=== PATIENT | male | born 1965 | race African-American/Black ===

== ENCOUNTER 2016-07-26 22:18 | Emergency (ER) | payer BC ==
[2016-07-26] MEDS ORDERED: Sodium Chloride 0.9% 1,000 ML IV ONE (22:34)
--- NOTE | 2016-07-26 22:37 | EDM.PDOC ---
ED HPI GENERAL MEDICAL PROBLEM - General Chief Complaint: General Stated Complaint: FLU Time Seen by Provider: 07/26/16 22:33 - History of Present Illness INITIAL COMMENTS - FREE TEXT/NARRATIVE: HISTORY AND PHYSICAL: History of present illness: Patient 50-year-old black male who presents with a chief complaint of tactile fever x2 days he's had exposure to another ill coworker is in no vomiting no no diarrhea he states he has had a mild cough no shortness of breath no abdominal pain Review of systems: As per history of present illness and below otherwise all systems reviewed and negative. Past medical history: As per history of present illness and as reviewed below otherwise noncontributory. Surgical history: As per history of present illness and as reviewed below otherwise noncontributory. Social history: No reported history of drug or alcohol abuse. Family history: As per history of present illness and as reviewed below otherwise noncontributory. Physical exam: HEENT: Atraumatic, normocephalic, pupils reactive, negative for conjunctival pallor or scleral icterus, mucous membranes moist, throat clear, neck supple, nontender, trachea midline. Lungs: Clear to auscultation, breath sounds equal bilaterally, chest nontender. Heart: S1S2, regular, negative for clicks, rubs, or JVD. Abdomen: Soft, nondistended, nontender. Negative for masses or hepatosplenomegaly. Negative for costovertebral tenderness. Pelvis: Stable nontender. Genitourinary: Deferred. Rectal: Deferred. Extremities: Atraumatic, negative for cords or calf pain. Neurovascular unremarkable. Neuro: Awake, alert, oriented. Cranial nerves II through XII unremarkable. Cerebellum unremarkable. Motor and sensory unremarkable throughout. Exam nonfocal. Diagnostics: CBC CMP influenza screen chest x-ray Therapeutics: Normal saline 1 L bolus Impression: #1 history of tactile fever #2 medical screening exam #3 probable viral syndrome Definitive disposition and diagnosis as appropriate pending reevaluation and review of above. no pain Pain Score (Numeric/FACES): 0 - Related Data Allergies Allergy/AdvReac Type Severity Reaction Status Date / Time No Known Allergies Allergy Verified 07/26/16 22:23 Home Meds: Home Meds Finasteride [Proscar] 5 mg PO DAILY 07/26/16 [History] ED ROS GENERAL - Review of Systems Review Of Systems: ROS reveals no pertinent complaints other than HPI. ED EXAM, GENERAL - Physical Exam Exam: See Below (See dictation) Course - Vital Signs Last Recorded V/S: Last Vital Signs Temp 36.8 C 07/26/16 22:24 Pulse 72 07/26/16 22:24 Resp 16 07/26/16 22:24 BP 122/74 07/26/16 22:24 Pulse Ox 99 07/26/16 22:24 - Orders/Labs/Meds Orders: Active Orders 24 hr Category Date Time Status Chest 2V [CR] Stat Exams 07/26/16 22:34 Ordered CBC WITH AUTO DIFF [HEME] Stat Lab 07/26/16 22:34 Ordered COMPREHENSIVE METABOLIC PN,CMP [CHEM] Stat Lab 07/26/16 22:34 Ordered INFLUENZA A+B AG SCREEN [RM] Stat Lab 07/26/16 22:34 Uncollected Sodium Chloride 0.9% [Normal Saline] 1,000 ml Med 07/26/16 22:34 Ordered IV STAT Departure - Departure Time of Disposition: 22:36 Disposition: Home, Self-Care 01 Condition: good Clinical Impression: Viral syndrome Forms: ED Department Discharge Additional Instructions: The following information is given to patients seen in the emergency department who are being discharged to home. This information is to outline your options for follow-up care. We provide all patients seen in our emergency department with a follow-up referral. The need for follow-up, as well as the timing and circumstances, are variable depending upon the specifics of your emergency department visit. If you don't have a primary care physician on staff, we will provide you with a referral. We always advise you to contact your personal physician following an emergency department visit to inform them of the circumstance of the visit and for follow-up with them and/or the need for any referrals to a consulting specialist. The emergency department will also refer you to a specialist when appropriate. This referral assures that you have the opportunity for followup care with a specialist. All of these measure are taken in an effort to provide you with optimal care, which includes your followup. Under all circumstances we always encourage you to contact your private physician who remains a resource for coordinating your care. When calling for followup care, please make the office aware that this follow-up is from your recent emergency room visit. If for any reason you are refused follow-up, please contact the emergency department at and asked to speak to the emergency department charge nurse. [facility]AN[facility] [address] [place] [id number] Push fluids Motrin Tylenol as directed return as needed as discussed follow up primary medical doctor and/or clinic - My Orders Last 24 Hours: My Active Orders 07/26/16 22:34 Chest 2V [CR] Stat CBC WITH AUTO DIFF [HEME] Stat COMPREHENSIVE METABOLIC PN,CMP [CHEM] Stat INFLUENZA A+B AG SCREEN [RM] Stat Sodium Chloride 0.9% [Normal Saline] 1,000 ml IV STAT - Assessment/Plan Last 24 Hours: My Active Orders 07/26/16 22:34 Chest 2V [CR] Stat CBC WITH AUTO DIFF [HEME] Stat COMPREHENSIVE METABOLIC PN,CMP [CHEM] Stat INFLUENZA A+B AG SCREEN [RM] Stat Sodium Chloride 0.9% [Normal Saline] 1,000 ml IV STAT
[2016-07-26 23:12] LABS: CHLORIDE,CL 108 mmol/L (98-110); SODIUM,NA 138 mmol/L (136-146)
[2016-07-26 23:40] VITALS: BP 123/70
--- NOTE | 2016-07-29 09:45 | CR ---
EXAM DATE: 07/26/16 PATIENT'S AGE: 50 Patient: KEKE NORTON Facility: [place], [place] Site . Site : [id number] Study: XRay Chest [id number] 10:50:58 PM Ordering Physician: Doctor Amezcua Final Report: INDICATION: diaphoretic, weakness TECHNIQUE: Chest 2 views. COMPARISON: None. FINDINGS: Cardiovascular and mediastinum: Heart size and vasculature are normal in caliber and appearance. Mediastinum is within normal limits. Lungs and pleural spaces: Lungs are clear. No sign of infiltrate or mass. No sign of pleural effusion. No pneumothorax. Bones and soft tissues: No significant findings. IMPRESSION: Unremarkable chest. Dictated by: Gumaro Gallagher MD @ 07/26/2016 22:54:53 (Electronic Signature) Report Signed by Proxy and Original Signed Document filed in the Medical Record. MTDD
== END 2016-07-26 23:38 | disposition home or self-care (01) ==
LOC: MW.ED 22:18
DX: B34.9 Viral infection, unspecified (principal)
CPT/HCPCS: 36415; 71020; 80053; 85025; 87804; 96360; 99283; J7040; 99282